=== PATIENT | male | born 1975 | race American Indian/Alaskan Native ===

== ENCOUNTER 2017-03-09 19:03 | Emergency (ER) | payer SELFPAY ==
[2017-03-09 20:00] VITALS: BP 143/98
== END 2017-03-10 07:03 | disposition left against medical advice (07) ==
LOC: ED 19:03
DX: M54.9 Dorsalgia, unspecified (principal); Z53.21 Procedure and treatment not carried out due to patient leaving prior to being seen by health care provider

== ENCOUNTER 2017-03-10 10:51 | Emergency (ER) | payer SELFPAY ==
[2017-03-10 11:42] VITALS: BP 142/95
[2017-03-10] MEDS ORDERED: NORCO 5/325 PO ONE (12:41)
[2017-03-10] MEDS ORDERED: FLEXERIL PO ONE (12:41)
--- NOTE | 2017-03-10 13:09 | XRay Report ---
THORACIC SPINE: Fall, pain. The bones are normally mineralized with well preserved vertebral height, alignment and interspace distances. No paraspinal soft tissue widening is noted. IMPRESSION: Normal study. AP AND LATERAL LUMBOSACRAL SPINE: Fall, pain. The vertebral bodies are well mineralized and normal in alignment and vertebral height with well preserved interspace distances. The visualized portions of the posterior elements are normal. IMPRESSION: Normal study.
[2017-03-10 13:35] LABS: Bacteria,Urine 1+ /HPF (Negative); Bilirubin,Urine NEG (Negative); Blood,Urine NEG (Negative); Ketones,Urine NEG (Negative); Leukocyte Esterase,Urine NEG (Negative); Nitrite,Urine NEG (Negative); Protein,Urine <15 mg/dL mg/dL (Negative); Urobilinogen,Urine < 2.0 mg/dL (<2.0); WBC,Urine < 1.0 /HPF (0.0-6.0)
--- NOTE | 2017-03-10 13:47 | Emergency Department Report ---
Entered by WESLY WHITE, acting as scribe for VIBHA RAMIREZ PA. ED Back Pain/Injury HPI - General Chief Complaint: Back Pain/Injury Stated Complaint: BACK PAIN Time Seen by Provider: 03/10/17 12:35 Source: patient, family Limitations: No Limitations - History of Present Illness Initial Comments: 41 y/o male with no significnt PMHx presents to the ED c/o acute low back pain that began 1 day ago. Patient states his pain is due to falling off a truck onto concrete at work yesterday. Rates pain a 10/10 in severity, which he describes as stabbing in quality. Aggravated with sitting and alleviated with lying flat. Associated symptom includes chills, but he denies LOC, head injury/ trauma, dysuria, urinary/bowel incontinence, urinary urgency and frequency, fever, abdominal pain, nausea, vomiting, diarrhea, numbness, and tingling. Took an aspirin with no relief. Denies PMHx of renal stones. NKDA. BROWN Complaint: back pain Onset/Timin -: days(s) Similar Symptoms Previously: No Place: work Radiation: none Severity: severe Severity scale (0 -10): 10 Quality: stabbing Consistency: constant Improves With: other (lying flat) Worsens With: movement, sitting upright Context: fall (off a truck at work and subsequently landed on concrete) Associated Symptoms: denies other symptoms, fever/chills (denies fever). denies : confusion, weakness, chest pain, numbness, difficulty walking, cough, difficulty urinating, diaphoresis, incontinence, constipation, headaches, abdominal pain, loss of appetite, malaise, nausea/vomiting, rash, seizure, shortness of breath, syncope Treatments Prior to Arrival: ASA - Related Data Previous Rx's Medication Instructions Recorded Last Taken Type Cyclobenzaprine [Flexeril] 10 mg PO TID PRN #15 tablet 03/10/17 Unknown Rx Ibuprofen [Motrin] 600 mg PO Q8H PRN #15 tablet 03/10/17 Unknown Rx Allergies Allergy/AdvReac Type Severity Reaction Status Date / Time No Known Allergies Allergy Verified 03/10/17 11:37 ED Review of Systems Comment: All other systems reviewed and negative Constitutional: chills. denies: diaphoresis, fever, malaise, weakness Eyes: denies: eye pain, eye discharge, vision change ENT: denies: ear pain, throat pain Respiratory: denies: cough, shortness of breath, wheezing Cardiovascular: denies: chest pain, palpitations Endocrine: no symptoms reported Gastrointestinal: denies: abdominal pain, nausea, vomiting, diarrhea, constipation, hematemesis, melena, hematochezia Genitourinary: denies: urgency, dysuria, frequency Musculoskeletal: back pain (low). denies: joint swelling, arthralgia, myalgia Skin: denies: rash, lesions Neurological: denies: headache, weakness, paresthesias ED Past Medical Hx - Past Medical History Previous Medical History?: No - Surgical History Past Surgical History?: No - Family History Family history: no significant - Social History Smoking Status: Current Every Day Smoker - Medications Home Medications: Home Medications Medication Instructions Recorded Confirmed Last Taken Type Cyclobenzaprine [Flexeril] 10 mg PO TID PRN #15 tablet 03/10/17 Unknown Rx Ibuprofen [Motrin] 600 mg PO Q8H PRN #15 tablet 03/10/17 Unknown Rx ED Physical Exam - General Limitations: No Limitations General appearance: alert, in no apparent distress - Head Head exam: Present: atraumatic, normocephalic, normal inspection - Eye Eye exam: Present: normal appearance, PERRL, EOMI. Absent: scleral icterus, conjunctival injection, nystagmus, periorbital swelling, periorbital tenderness Pupils: Present: normal accommodation - ENT ENT exam: Present: normal exam, normal orophraynx, mucous membranes moist, TM's normal bilaterally, normal external ear exam - Neck Neck exam: Present: normal inspection, full ROM. Absent: tenderness, meningismus, lymphadenopathy, thyromegaly - Respiratory Respiratory exam: Present: normal lung sounds bilaterally. Absent: respiratory distress, wheezes, rales, rhonchi, stridor, chest wall tenderness, accessory muscle use, decreased breath sounds - Cardiovascular Cardiovascular Exam: Present: regular rate, normal rhythm, normal heart sounds. Absent: systolic murmur, diastolic murmur - GI/Abdominal GI/Abdominal exam: Present: soft, normal bowel sounds. Absent: distended, tenderness, guarding, rebound, rigid - Extremities Exam Extremities exam: Present: normal inspection, full ROM, normal capillary refill. Absent: tenderness, pedal edema, joint swelling, calf tenderness - Back Exam Back exam: Present: full ROM, tenderness (lumbar vertebral tenderness and bilateral lumbar paraspinal), paraspinal tenderness (bilateral lumbar), vertebral tenderness (lumbar). Absent: normal inspection, CVA tenderness (R), CVA tenderness (L), muscle spasm, rash noted - Expanded Back Exam Expanded Back exam: Absent: saddle anesthesia Back exam: Positive Straight Leg Raise: Left, Negative Straight Leg Raising: Right - Neurological Exam Neurological exam: Present: alert, oriented X3, normal gait - Expanded Neurological Exam Expanded Neurological exam: Absent: innattentive, memory loss-remote event, memory loss- recent event, ataxia, receptive aphasia, expressive aphasia, total aphasia, tremor Patient oriented to: Present: person, place, time Speech: Present: fluid speech (normal tone of speech) Cranial nerves: EOM's Intact: Normal Cerebellar function: Romberg: Normal Upper motor neuron: Pronator Drift: Normal Sensory exam: Upper Extremity Light Touch: Normal, Upper Extremity Pin Prick: Normal, Upper Extremity Temperature: Normal, UE 2 Point Discrimination: Normal, Lower Extremity Light Touch: Normal, Lower Extremity Pin Prick: Normal, Lower Extremity Temperature: Normal, LE 2 Point Discrimination: Normal Motor strength exam: RUE: 5, LUE: 5, RLE: 5, LLE: 5 DTR: bicep (R): 2+, bicep (L): 2+, tricep (R): 2+, tricep (L): 2+, knee (R): 2+ , knee (L): 2+, ankle (R): 2+, ankle (L): 2+ Best Eye Response ([place]): (4) open spontaneously Best Motor Response ([place]): (6) obeys commands Best Verbal Response ([place]): (5) oriented [place] Total: 15 - Psychiatric Psychiatric exam: Present: normal affect, normal mood - Skin Skin exam: Present: warm, dry, intact. Absent: rash ED Course Vital Signs 03/10/17 11:39 Temperature 98.1 F Pulse Rate 63 Respiratory 18 Rate Blood Pressure 142/95 O2 Sat by Pulse 100 Oximetry - Reevaluation(s) Reevaluation #1: 03/10/17 13:30 Patient given norco 5/325 mg and Flexeril 10 mg po with positive relief ED Medical Decision Making - Lab Data Lab Results 03/10/17 Range/Units 12:45 Urine Color Straw (Yellow) Urine Turbidity Clear (Clear) Urine pH 6.0 (5.0-7.0) Ur Specific [place] 1.004 (1.003-1.030) Urine Protein <15 mg/dl (Negative) mg/dL Urine Glucose (UA) Neg (Negative) mg/dL Urine Ketones Neg (Negative) mg/dL Urine Blood Neg (Negative) Urine Nitrite Neg (Negative) Urine Bilirubin Neg (Negative) Urine Urobilinogen < 2.0 (<2.0) mg/dL Ur Leukocyte Esterase Neg (Negative) Urine WBC (Auto) < 1.0 (0.0-6.0) /HPF Urine RBC (Auto) 1.0 (0.0-6.0) /HPF Urine Bacteria (Auto) 1+ (Negative) /HPF - Radiology Data Radiology results: report reviewed XR of thoracic spine reveal no acute findings XR lumbar spine reveal no acute findings - Medical Decision Making ED Course: Here status post injury to lower back with complaint of bilateral back pain in the lumbar area. He was given [place] 5/325 and Flexeril 10 mg by mouth for pain. X-ray of thoracic and lumbar spine reveal no acute findings. Urinalysis negative for urinary tract infection. This is explained to patient in detail and he voiced understanding. I explained to him that he will need to follow up with Orthopedic if he continues to have back pain. Diagnostic/labs:X-ray of thoracic spine reveals normal study, X-ray of the lumbar spine reveals normal study. Urinalysis revealed no urinary tract infection Assessment/plan 1. lumbar strain 2. Back pain Follow up with orthopedic doctor as instructed Rest couple days Patient given for Flexeril and Motrin ED Disposition Clinical Impression: Lumbar strain Qualifiers: Encounter type: initial encounter Qualified Code(s): S39.012A - Strain of muscle, fascia and tendon of lower back, initial encounter Back pain Qualifiers: Back pain location: low back pain Chronicity: acute Back pain laterality: bilateral Sciatica presence: without sciatica Qualified Code(s): M54.5 - Low back pain Disposition: DC-01 TO HOME OR SELFCARE Is pt being admited?: No Does the pt Need Aspirin: No Condition: Stable Instructions: Back Pain (ED), Core Strengthening Exercises (GEN), Low Back Strain (ED) Additional Instructions: Follow-up with orthopedic doctor as instructed Do Not drive or operate heavy machinery while taking Flexeril with this medication can cause drowsiness Prescriptions: Cyclobenzaprine [Flexeril] 10 mg PO TID PRN #15 tablet PRN Reason: Muscle Spasm Ibuprofen [Motrin] 600 mg PO Q8H PRN #15 tablet PRN Reason: Pain Referrals: [facility] [Outside] - 03/15/17 NANI KUNZ MD [Staff Physician] - 03/15/17 Forms: Work/School Release Form(ED) This documentation as recorded by the CINDY powell JASMINE,accurately reflects the service I personally performed and the decisions made by ,VIBHA RAMIREZ, PA.
== END 2017-03-10 14:00 | disposition home or self-care (01) ==
LOC: ED 10:51
DX: S39.012A Strain of muscle, fascia and tendon of lower back, initial encounter (principal); F17.210 Nicotine dependence, cigarettes, uncomplicated; X58.XXXA Exposure to other specified factors, initial encounter; Y93.89 Activity, other specified; Y92.89 Other specified places as the place of occurrence of the external cause; Y99.8 Other external cause status
CPT/HCPCS: 72072; 72100; 99284